=== PATIENT | female | born 1930 | race Caucasian/White ===

== ENCOUNTER 2017-05-21 13:26 | Emergency (ER) | payer MEDICARE, OTHER ==
[~2017-05-21] VITALS: Ht 165.1 cm; Wt 90.9 kg
[~2017-05-21 13:26] MED LIST: ASPI-973 PO; OXYB5TAB10 PO; OXYC1TAB24 PO; PRAM0.5T3 PO; SIMV40TA2 PO
[2017-05-21 13:28] VITALS: BP 106/71; PULSE 64; RESP 18; O2SAT 96
--- NOTE | 2017-05-21 13:55 | ED.REPORT ---
HPI-Abd Pain F 40 and Over Date of Service May 21, 2017 ED Provider: Tamara Harrington History of Present Illness: A 87-year-old female here for lower abdominal pain and diarrhea 4 days. Slightly nauseous but no vomiting. No blood noted in stool. No urinary symptoms. She is lightheaded with position changes. Her gallbladder and appendix have been removed. No known fever. No known infectious contacts. Diarrhea has been severe and constant. It is liquid at this point. She is able tolerate by mouth she had toast this morning. Nursing Notes Stated Complaint: DIAHRREA/SENT FROM URGENT CARE Chief Complaint: Female Abdominal Pain Nursing Notes Reviewed: Yes Allergies: Coded Allergies: Penicillins (Verified Allergy, Severe, RASH,SWELLING, 05/23/16) Scheduled Aspirin (Aspirin) 81 Mg Tablet 81 MG PO DAILY Levofloxacin (Levaquin) 750 Mg Tablet 750 MG PO DAILY Levofloxacin (Levaquin) 750 Mg Tablet 750 MG PO DAILY Metronidazole (Metronidazole) 500 Mg Tablet 500 MG PO TID Oxybutynin Chloride (Oxybutynin Chloride) 5 Mg Tablet 5 MG PO DAILY Pramipexole Dihydrochloride (Mirapex) 0.5 Mg Tablet 0.5 MG PO QPM Simvastatin (Zocor) 40 Mg Tablet 40 MG PO HS Scheduled PRN oxyCODONE-Acetaminophen 5-325 mg (oxyCODONE-Acetaminophen 5-325 mg) 1 Each Tablet 1 TAB PO Q6H PRN PRN For Pain General Time Seen by MD: 13:43 Chief Complaint Abdominal pain, Diarrhea severe Hx Obtained From: Patient, Daughter Arrived By: Walk-in Sudden in Onset?: Yes Onset Occurred: 4 days ago Symptom Duration: Intermittent Progression since Onset: Intermittent Location: : Abdomen lower Quality: Cramping Severity: Current: Mild Severity: Maximum: Severe Associated with: Reports: Anorexia, Diarrhea Pertinent Negative: Pt denies other symptoms Recent Healthcare: Recent doctor visit Similar Sx Previous: No Past Medical History Past Medical History Aortic stenosis Restless leg syndrome History of PE in December 2009, off Coumadin now. Obstructive sleep apnea, could not tolerate CPAP. Urinary incontinence. Reports: Hyperlipidemia, Hypertension Past Surgical History Reports: Appendectomy, Cholecystectomy Smoking History Former Smoker Social History Pt lives indenedently in a senior apartment Alcohol Use: 1-3 per day Review of Systems Constitutional: Denies: Chills, Fatigue, Fever Respiratory: Denies: Dyspnea on exertion, Non-productive cough Cardiovascular: Denies: Chest pain GI: Reports: Abdominal pain, Anorexia, Diarrhea, Nausea, Denies: Hematochezia, Vomiting Female: Denies: Dysuria Musculoskeletal: Denies: Back pain Complete sys rev & neg: except as marked. Physical Exam Vital Signs Vital Signs (First) Date Time Temp Pulse Resp B/P Pulse Ox O2 Delivery O2 Flow Rate FiO2 05/21/17 13:28 36.4 64 18 106/71 96 Room Air Initial VS: Reviewed, Vital signs normal General/Constitutional: Awake, Alert Respiratory / Chest: Breath sounds NL, Breath sounds = bilat, No respiratory distress, No rales, No rhonchi, No wheezing, No stridor Cardiovascular: Heart rate NL, Regular rhythm, No gallop, No rubs, Cap refill not delayed Heart Sounds / Murmur: Positive: Systolic murmur present.. (III/) Abdomen: Atraumatic, Soft, No guarding, No rebound Tenderness/Guarding/Rebound: Positive: Tender LLQ... (Moderate), Tender RLQ... (Moderate) Bowel Sounds / Distention: Positive: Bowel sounds hypoactive Guaiac positive mildly Head / Eyes: Normocephalic, PERRL Skin: Color NL, Warm, Dry, Turgor NL Interpretation & Diagnostics Lab Results Interpretation Result Diagram: 05/21/17 1410 05/21/17 1410 Test 05/21/17 14:10 05/21/17 14:50 White Blood Count 6.9th/mm3 (3.8-10.1) Red Blood Count 4.24mil/mm3 (3.90-5.20) Hemoglobin 13.7g/dL (12.0-15.6) Hematocrit 41.2% (35.0-46.0) Mean Corpuscular Volume 97.2fL (81-100) Mean Corpuscular Hemoglobin 32.3pg (27.0-35.0) Mean Corpuscular Hemoglobin Concent 33.3% (32.0-37.0) Red Cell Distribution Width 13.2% (12.3-15.4) Platelet Count 228bil/L (150-400) Neutrophils (%) (Auto) 72.0% (40-74) Lymphocytes (%) (Auto) 17.3% (14-46) Monocytes (%) (Auto) 8.7% (4-12) Eosinophils (%) (Auto) 1.6% (0-5) Basophils (%) (Auto) 0.4% (0-3) Sodium Level 138mEq/L (134-144) Potassium Level 3.8mEq/L (3.5-5.2) Chloride Level 102mEq/L (97-108) Carbon Dioxide Level 24mmol/L (18-29) Blood Urea Nitrogen 12mg/dL (8-27) Creatinine 0.65mg/dL (0.57-1.00) Estimat Glomerular Filtration Rate 124mL/min (>59) Glucose Level 100mg/dL (60-99) Calcium Level 9.2mg/dL (8.5-10.1) Magnesium Level 1.8mg/dL (1.6-2.6) Total Bilirubin 0.6mg/dL (0.0-1.2) Aspartate Amino Transf (AST/SGOT) 18U/L (0-50) Alanine Aminotransferase (ALT/SGPT) 16U/L (0-32) Alkaline Phosphatase 48U/L (25-165) Total Protein 7.5g/dL (6.4-8.4) Albumin 3.9g/dL (3.4-5.0) Lipase 14U/L (13-60) Hold Velasquez Top Tube Received (Received) Hold Urine Received (Received) CT Abd / Pelvis Interpretation PROCEDURE: CT ABDOMEN AND PELVIS WITH CONTRAST ([id number]) INDICATIONS: lower abd pain TECHNIQUE: After the administration of intravenous contrast, 5 mm thick sections acquired from the diaphragm to the symphysis. 5 mm coronal and sagittal reformats were acquired. For radiation dose reduction, the following was used: automated exposure control, adjustment of mA and/or kV according to patient size. COMPARISON: None. FINDINGS: Image quality: Excellent. ABDOMEN: Lung bases: There is moderate bibasilar interstitial pulmonary opacification. Heart size is enlarged. Solid organs: Liver and spleen are normal in size and enhancement. Gallbladder is surgically absent. Biliary system is non dilated. Pancreas enhances normally. No adrenal nodules. Kidneys demonstrate normal size and enhancement, without hydronephrosis. Peritoneum and bowel: A small hiatal hernia is present. Stomach and small bowel are within normal limits. Appendix is not seen. No evidence of appendicitis. Colon is nondistended, and is suboptimally evaluated secondary to lack of oral contrast. There is possible thickening of the proximal and mid sigmoid colon, with mild surrounding pericolonic fat stranding. No pericolonic abscess. Diverticulosis of the descending and sigmoid colon is present. No free fluid or air. Nodes and vessels: No retroperitoneal or mesenteric adenopathy by size criteria. Aorta and inferior vena cava are normal in size. Miscellaneous: No ventral hernias. PELVIS: Genitourinary: Bladder wall thickness is normal. Miscellaneous: No inguinal hernias or adenopathy. Bones: No suspicious bony lesions. There is severe chronic appearing wedging of L1. No acute vertebral body compression fractures. IMPRESSION: 1. Limited evaluation secondary to lack of oral contrast. There is possible diverticulitis of the sigmoid colon. No pericolonic abscess. 2. Appendix not seen. No evidence of appendicitis. 3. Small hiatal hernia. 4. Bibasilar interstitial pulmonary disease. 5. Cardiomegaly. 6. Severe chronic appearing L1 compression fracture. Re-Eval/Medical Decision Med Decision/Clinical Course Discussed discharge with patient will treat for probable diverticulitis. We will use metronidazole and levofloxacin. She was not able to give us a stool sample here today. Advised her to follow-up in 2 days with her doctor and they can do a stool sample at that time if patient is not improving. Light diet discussed. Patient is pain free upon discharge when I palpate her belly it is mildly tender. Discharge & Departure Shift Change Sign-Out Laboratory Evaluation: Lab evaluation discussed Imaging Studies: Imaging discussed Response to Therapy: Improved Primary Impression: Diverticulitis Diverticulitis site: unspecified part of intestinal tract Diverticulitis bleeding: without bleeding Diverticulitis complication: without perforation or abscess Qualified Code: K57.92 - Diverticulitis of intestine, part unspecified, without perforation or abscess without bleeding Disposition: Home Discharge Condition All VS Reviewed: Yes Condition: Stable Patient Instructions: Diverticulitis (ED) Additional Instructions: Take your antibiotics as prescribed. Clear liquid diet and advanced as tolerated to soft foods and crackers and toast. Return if fevers, vomiting, worsening pain or any other severe symptoms. Follow-up with your doctor in 2 days for recheck. Guaiac was mildly positive today this needs follow-up on please see her PCP for further care Referrals: Bonnie Mendez (PCP) EDSupervising Provider for APC: Aida Larry MD copies to: Bonnie Mendez Linnea K ARNP May 21, 2017 13:55
[2017-05-21] MEDS ORDERED: 0.9% Sodium Chloride 1,000 ML IV ONE (13:58)
[2017-05-21 14:26] LABS: BASOPHILS % (AUTO) 0.4 % (0-3); EOSINOPHILS % (AUTO) 1.6 % (0-5); MONOCYTES % (AUTO) 8.7 % (4-12); Mean Corpuscular Hemoglobin 32.3 pg (27.0-35.0); Mean Corpuscular Volume 97.2 fL (81-100); Platelet Count 228 bil/L (150-400)
[2017-05-21 14:34] VITALS: BP_SYST 144; BP_SYST 149; BP_SYST 154; BP_DIAS 66; BP_DIAS 73; BP_DIAS 76; PULSE 57; RESP 13; O2SAT 94
[2017-05-21 14:45] LABS: Magnesium 1.8 mg/dL (1.6-2.6)
--- NOTE | 2017-05-21 15:30 | DRSVH ---
PROCEDURE: CT ABDOMEN AND PELVIS WITH CONTRAST ([id number]) INDICATIONS: lower abd pain TECHNIQUE: After the administration of intravenous contrast, 5 mm thick sections acquired from the diaphragm to the symphysis. 5 mm coronal and sagittal reformats were acquired. For radiation dose reduction, the following was used: automated exposure control, adjustment of mA and/or kV according to patient siz e. COMPARISON: None. FINDINGS: Image quality: Excellent. ABDOMEN: Lung bases: There is moderate bibasilar interstitial pulmonary opacification. Heart size is enlarged. Solid organs: Liver and spleen are normal in size and enhancement. Gallbladder is surgically absent . Biliary system is non dilated. Pancreas enhances normally. No adrenal nodules. Kidneys demonstr ate normal size and enhancement, without hydronephrosis. Peritoneum and bowel: A small hiatal hernia is present. Stomach and small bowel are within normal seay its. Appendix is not seen. No evidence of appendicitis. Colon is nondistended, and is suboptimally ev aluated secondary to lack of oral contrast. There is possible thickening of the proximal and mid sigm oid colon, with mild surrounding pericolonic fat stranding. No pericolonic abscess. Diverticulosis of the descending and sigmoid colon is present. No free fluid or air. Nodes and vessels: No retroperitoneal or mesenteric adenopathy by size criteria. Aorta and inferior vena cava are normal in size. Miscellaneous: No ventral hernias. PELVIS: Genitourinary: Bladder wall thickness is normal. Miscellaneous: No inguinal hernias or adenopathy. Bones: No suspicious bony lesions. There is severe chronic appearing wedging of L1. No acute verteb ral body compression fractures. IMPRESSION: 1. Limited evaluation secondary to lack of oral contrast. There is possible diverticulitis of the sig moid colon. No pericolonic abscess. 2. Appendix not seen. No evidence of appendicitis. 3. Small hiatal hernia. 4. Bibasilar interstitial pulmonary disease. 5. Cardiomegaly. 6. Severe chronic appearing L1 compression fracture. Dictated by: Андрей Thomas M.D. on 05/21/2017 at 15:25 Approved by: Андрей Thomas M.D. on 05/21/2017 at 15:28
[2017-05-21] MEDS ORDERED: METR500T19 PO (16:16)
[2017-05-21] MEDS ORDERED: LEVO750T9 PO ×2 (16:17→16:19)
[2017-05-21 16:30] VITALS: BP 128/72; PULSE 75; RESP 16; O2SAT 94
== END 2017-05-21 16:26 | disposition home or self-care (01) ==
LOC: SED 13:26
DX: K57.92 Diverticulitis of intestine, part unspecified, without perforation or abscess without bleeding (principal); I10 Essential (primary) hypertension; E78.5 Hyperlipidemia, unspecified; G47.33 Obstructive sleep apnea (adult) (pediatric); Z79.82 Long term (current) use of aspirin; Z90.49 Acquired absence of other specified parts of digestive tract; Z87.891 Personal history of nicotine dependence; Z88.0 Allergy status to penicillin
CPT/HCPCS: 36415; 74177; 80053; 83690; 83735; 85025; 96360; 99285; J7030; Q9967